=== PATIENT | male | born 1995 | race Caucasian/White ===

== ENCOUNTER 2017-05-13 20:14 | Emergency (ER) | payer MEDICAID ==
[~2017-05-13] VITALS: Ht 177.8 cm; Wt 110.0 kg
[2017-05-13 20:18] VITALS: BP 135/87
[2017-05-13 20:46] LABS: HEMATOCRIT 48.8 % (39.2-51.8); HEMOGLOBIN 16.8 g/dL (13.7-18.0); WHITE BLOOD COUNT 14.3 x10^3/uL (4.5-13.2)
[2017-05-13 20:55] LABS: BLOOD UREA NITROGEN 10 mg/dL (7-18)
[2017-05-13 21:28] LABS: DAU SCREEN DISCLAIMER
== END 2017-05-13 22:11 | disposition home or self-care (01) ==
LOC: ED 22:03
DX: F12.129 Cannabis abuse with intoxication, unspecified (principal); F13.129 Sedative, hypnotic or anxiolytic abuse with intoxication, unspecified; V89.2XXA Person injured in unspecified motor-vehicle accident, traffic, initial encounter; Y93.89 Activity, other specified; Y92.488 Other paved roadways as the place of occurrence of the external cause; Y99.8 Other external cause status
CPT/HCPCS: 36415; 80048; 80307; 82040; 85025; 99284; G0479

== ENCOUNTER 2017-05-14 00:07 | Emergency (ER) | payer MEDICAID ==
[~2017-05-14] VITALS: Ht 177.8 cm; Wt 110.0 kg
[2017-05-14 00:11] VITALS: BP 133/97
== END 2017-05-14 01:38 | disposition home or self-care (01) ==
LOC: ED 00:16
DX: Z00.00 Encounter for general adult medical examination without abnormal findings (principal)
CPT/HCPCS: 99283

== ENCOUNTER 2017-05-14 02:35 | Observation (INO) | payer MEDICAID ==
[~2017-05-14] VITALS: Ht 177.8 cm; Wt 110.0 kg
[2017-05-14 05:17] VITALS: BP 102/49
[2017-05-14 05:24] VITALS: BP 136/78
[2017-05-14] MEDS ORDERED: LORazepam 1MG TABLET PO PRN (07:00)
[2017-05-14] MEDS ORDERED: ONDANSETRON ODT 4 MG PO PRN (07:00)
[2017-05-14] MEDS ORDERED: POLYETHYLENE GLYCOL 17 GM PACKET PO PRN (07:00)
[2017-05-14] MEDS ORDERED: BISACODYL 10 MG SUPP PR PRN (07:00)
[2017-05-14] MEDS ORDERED: ACETAMINOPHEN 325 MG TABLET PO PRN (07:00)
[2017-05-14] MEDS ORDERED: DOCUSATE 100 MG CAPSULE PO PRN (07:00)
[2017-05-14 07:48] VITALS: BP 122/75
[2017-05-14 19:12] VITALS: BP 122/75
== END 2017-05-14 20:10 ==
LOC: ED 02:50 → INTOOBSV 04:24 → EDIP 04:24 → 3E 05:09
PROVIDERS: ADMIT Student in an Organized Health Care Education/Training Program; ATTEND Family Medicine
DX: R45.851 Suicidal ideations (principal); F32.9 Major depressive disorder, single episode, unspecified; F19.90 Other psychoactive substance use, unspecified, uncomplicated
CPT/HCPCS: 93005; 99285; G0378

== ENCOUNTER 2017-05-17 14:57 | Emergency (ER) | payer MEDICAID ==
[~2017-05-17] VITALS: Ht 177.8 cm; Wt 120.0 kg
[2017-05-17] MEDS ORDERED: LORazepam 2 MG/ML, 1ML IVPush ONE (15:00)
[2017-05-17] MEDS ORDERED: HYDROmorphone 1 MG/ML, 1ML ONE ×2 (15:00→18:19)
[2017-05-17] MEDS ORDERED: HYDROmorphone 1 MG/ML, 1ML IVPush PRN ×2 (15:00→18:30)
[2017-05-17] MEDS ORDERED: ONDANSETRON 2MG/ML, 2ML IVPush ONE (15:00)
[2017-05-17] MEDS ORDERED: LORazepam 2 MG/ML, 1ML ONE (15:01)
[2017-05-17] MEDS ORDERED: PROPOFOL 10 MG/ML, 20ML ONE (15:14)
[2017-05-17] MEDS ORDERED: PROPOFOL 10 MG/ML, 20ML IVPush ONE (16:00)
[2017-05-17] MEDS ORDERED: ETOMIDATE 20 MG/10 ML ONE (17:55)
[2017-05-17] MEDS ORDERED: FENTANYL PF 100 MCG/2ML ONE ×2 (19:36→19:59)
[2017-05-17] MEDS ORDERED: MIDAZOLAM 1 MG/ML, 5ML ONE (19:49)
[2017-05-17] MEDS ORDERED: FENTANYL PF 100 MCG/2ML IVPush ONE ×2 (20:00→21:00)
[2017-05-17] MEDS ORDERED: ETOMIDATE 40 MG/20 ML IVPush ONE ×2 (20:00→21:00)
[2017-05-17] MEDS ORDERED: MIDAZOLAM 1 MG/ML, 5ML IVPush ONE (21:00)
[2017-05-17 22:26] VITALS: BP 142/95
== END 2017-05-17 22:30 | disposition home or self-care (01) ==
LOC: ED 18:45
DX: S83.014A Lateral dislocation of right patella, initial encounter (principal); F32.9 Major depressive disorder, single episode, unspecified; X58.XXXA Exposure to other specified factors, initial encounter; Y93.41 Activity, dancing; Y92.098 Other place in other non-institutional residence as the place of occurrence of the external cause; Y99.8 Other external cause status
CPT/HCPCS: 27560; 73564; 73700; 93922; 96374; 96375; 99152; 99153; 99285; J1170; J2060; J2250; J2704; J3010

== ENCOUNTER 2017-08-09 16:36 | Emergency (ER) | payer MEDICAID ==
[~2017-08-09] VITALS: Ht 180.3 cm; Wt 100.0 kg
[2017-08-09] MEDS ORDERED: IBUPROFEN 200 MG TABLET PO ONE (17:00)
[2017-08-09] MEDS ORDERED: IBUPROFEN 200 MG TABLET ONE (17:22)
[2017-08-09 17:53] VITALS: BP 135/60
== END 2017-08-09 19:20 ==
LOC: ED 18:26
DX: S83.015A Lateral dislocation of left patella, initial encounter (principal); G89.11 Acute pain due to trauma; Z87.891 Personal history of nicotine dependence; X58.XXXA Exposure to other specified factors, initial encounter; Y93.71 Activity, boxing; Y92.89 Other specified places as the place of occurrence of the external cause; Y99.8 Other external cause status
CPT/HCPCS: 29505; 99284